=== PATIENT | female | born 1965 | race Caucasian/White ===

== ENCOUNTER 2019-01-06 08:12 | Day surgery (SDC) | payer OTHER ==
[~2019-01-06 08:12] MED LIST: Midazolam 1 MG/ML 2 ML SDV ONE; Propofol 200 MG/20 ML SDV ONE; fentaNYL 100 MCG/2 ML SDV ONE
[2019-01-06] MEDS ORDERED: Dextrose 5%-Lactated Ringers 1,000 ML IV SCH (08:30)
[2019-01-06] MEDS ORDERED: Glycopyrrolate 0.2 MG/ML 2 ML SDV IVPUSH ONE (08:30)
--- NOTE | 2019-01-16 10:54 | OR ---
DATE OF PROCEDURE: 01/06/2019 PREOPERATIVE DIAGNOSES: 1. Mild degree of dysphagia and metallic taste, status post Eulogio-en-Y gastric bypass. 2. History of colon polyps. POSTOPERATIVE DIAGNOSES: 1. Grossly normal upper GI endoscopic exam, status post Eulogio-en-Y gastric bypass. 2. Single polyp in midsigmoid colon (20 cm from dentate line). PROCEDURES PERFORMED: 1. Upper GI endoscopy. 2. Flexible colonoscopy with polypectomy by snare technique. ANESTHESIA: IV sedation. INDICATION FOR PROCEDURE: A 53-year-old status post Eulogio-en-Y gastric bypass presenting with some ongoing epigastric discomfort and sense of metallic taste in her mouth. Of note, she had a positive breath test for H. pylori and was going to be starting treatment for that tomorrow. She also has history of colon polyps in the past and the plan is to proceed with an upper and lower endoscopy with biopsies and/or polypectomy as indicated. Potential risks including bleeding and perforation were discussed and the patient wishes to proceed. DETAILS OF PROCEDURE: The patient was taken to the operating room and placed in a left lateral decubitus position. IV sedation was administered after which the upper GI endoscope was passed orally through the length of the esophagus and into the gastric pouch, from there through the gastrojejunostomy, roughly 20 cm into the Eulogio limb. Overall, the entire upper endoscopic examination was normal. There were no areas of significant inflammation or stricturing and nothing to suggest ongoing reflux or partial obstruction i.e., no bile or fluid was present in the Eulogio limb. The scope was then withdrawn. CLOtest was not obtained as we already had a recently positive breath test for H. pylori. Attention was then taken to the colonoscopy. The digital rectal exam was performed and was unremarkable. Colonoscope was then passed into the rectum with retroflexion revealing uncomplicated hemorrhoidal columns. The patient did have somewhat larger than average hemorrhoidal-type skin tags, the scope was then eventually passed to the level of the cecum. The patient was noted to have a tattoo in the distal descending colon, otherwise there was a single polyp measuring around 3 to 4 mm present in the midsigmoid colon 20 cm from the dentate line. Apart from that no additional polyps or other signs of neoplasia, no diverticulosis or colitis were evident. The polyp was encircled with cautery snare and excised and sent for histologic evaluation. No bleeding was seen and the scope was then withdrawn and the above procedure concluded. Plan at this point will be to have the patient repeating a colonoscopy in 2 years assuming that the present polyp is benign. Otherwise, she'll be initiating the anti-H. pylori treatment. Hopefully, that will have some improvement with the patient's upper GI symptoms and should be following up with Kim rhodes in 1 month. Jaden Jane MD /[id number]
== END 2019-01-06 11:07 | disposition home or self-care (01) ==
LOC: JP.SDS 08:12
PROVIDERS: ATTEND Surgery
DX: Z12.11 Encounter for screening for malignant neoplasm of colon (principal); K63.5 Polyp of colon; K64.4 Residual hemorrhoidal skin tags; R10.13 Epigastric pain; K21.9 Gastro-esophageal reflux disease without esophagitis; B96.81 Helicobacter pylori [H. pylori] as the cause of diseases classified elsewhere; Z98.84 Bariatric surgery status; Z86.010 Personal history of colon polyps; Z98.890 Other specified postprocedural states
CPT/HCPCS: 43235; 45385; 88305; J2250; J2704; J3010; J3490; J7042